=== PATIENT | male | born 1980 | race Caucasian/White ===

== ENCOUNTER 2025-04-27 00:30 | Emergency (ER) | payer MEDICAID ==
[~2025-04-27] VITALS: Ht 172.7 cm; Wt 61.8 kg
[2025-04-27 00:50] VITALS: BP 143/85; PULSE 53; RESP 16; TEMP 97.6; O2SAT 97
[2025-04-27 00:59] LABS: Basophils # (auto) 0.1 10 ^3/uL (0-0.2); Basophils % (auto) 0.5 % (0.0-2.0); Eosinophils # (auto) 0 10 ^3/uL (0-0.8); Eosinophils % (auto) 0.1 % (0.0-7.0); Hematocrit 47.7 % (41.0-53.0); Hemoglobin 16.3 g/dL (13.5-17.5); Lymphocytes # (auto) 0.7 10 ^3/uL (0.4-5.4); Lymphocytes % (auto) 4.6 % (10.0-50.0); Mean Corpuscular Hemoglobin 31.8 pg (28.0-32.0); Mean Corpuscular Hgb Conc. 34.2 g/dL (32.0-36.0); Mean Corpuscular Volume 93.1 fL (80.0-100.0); Monocytes # (auto) 0.7 10 ^3/uL (0-1.3); Monocytes % (auto) 4.3 % (0.0-12.0); Neutrophils # (auto) 13.9 10 ^3/uL (1.6-8.6); Neutrophils % (auto) 90.5 % (37.0-80.0); Platelet Count (auto) 198 10^3/uL (140-450); Red Blood Cells 5.12 10^6/uL (4.5-5.90); Red Cell Distribution Width 14.5 % (11.8-14.3); White Blood Cell 15.4 10^3/uL (4.4-10.8)
[2025-04-27 01:04] LABS: Potassium 3.6 mmol/L (3.5-5.1); Sodium 144 mmol/L (136-145)
[2025-04-27 01:05] LABS: Anion Gap 10 (5-15); Calcium 9.5 mg/dL (8.7-10.4); Carbon Dioxide 24 mmol/L (20-31)
[2025-04-27 01:09] LABS: Chloride 110 mmol/L (98-107)
[2025-04-27 01:10] LABS: BUN/Creatinine Ratio 11.2 (10.0-20.0); Blood Urea Nitrogen 12 mg/dL (9-23)
[2025-04-27 01:11] LABS: Lipase 29 U/L (12-53)
[2025-04-27 01:14] LABS: Glucose 153 mg/dL (74-106)
[2025-04-27] MEDS ORDERED: METO-281 PO (02:57)
[2025-04-27] MEDS ORDERED: DICY10CA PO (02:57)
[2025-04-27] MEDS ORDERED: METR-344 PO (02:57)
[2025-04-27] MEDS ORDERED: ZOFR4T PO (02:57)
--- NOTE | 2025-04-27 02:58 | ED.PDOC ---
GI ASSESSMENT HPI Comments Patient is a slender 44-year-old male who arrives the ED today for evaluation of diffuse abdominal pain that began earlier today and has continued. Patient states that the event occurred after he drank some juice. Patient states that intermittent nausea and vomiting as well as not passing any stools since earlier today. Patient denies any fever. Vital signs were reasonably stable on arrival. Chief Complaint: Abdominal Pain Time Seen by MD: 00:32 Reviewed Notes: Nurses Notes Allergies: Coded Allergies: No Known Drug Allergy (Verified Allergy, Unknown, 04/27/25) Information Source: Patient, Friend Mode of Arrival: Ambulatory Timing: Hours Duration: Since onset Prehospital treatment: None Quality: Aching, Cramping Vomitus: Bilious, Food Particles, Soft, Watery Severity: Moderate Recent: Possible spoiled food Recent Hx of: None Pain Location: Diffuse, Epigastric, Periumbilical Associated sign and symptoms: Nausea, Vomiting Past Medical History PAST MEDICAL HISTORY: Denies Surgical History: Denies all surgeries Family History Family History: Reviewed,noncontributory to illness, No family hx of Cancer, No family hx of DM, No family hx of Heart lashae, No family hx of HTN, No family hx ofKidney lashae, No family hx of Liver lashae, No family hx of Lung lashae, No family hx of Stroke Social History Smoker: Non-Smoker Alcohol: Denies ETOH Use Drugs: Denies Drug Use Lives In: Home Constitutional: denies: chills, diaphoresis, fatigue, fever, malaise, sweats, weakness, others EENTM: denies: blurred vision, double vision, ear bleeding, ear discharge, ear drainage, ear pain, ear ringing, eye pain, eye redness, hearing loss, mouth pain, mouth swelling, nasal discharge, nose bleeding, nose congestion, nose pain, photophobia, tearing, throat pain, throat swelling, voice changes, others Respiratory: denies: cough, hemoptysis, orthopnea, SOB at rest, shortness of breath, SOB with excertion, stridor, wheezing, others Cardiovascular: denies: chest pain, dizzy spells, diaphoresis, Dyspnea on exertion, edema, irregular heart beat, left arm pain, lightheadedness, palpitations, PND, syncope, others Gastrointestinal: reports: abdominal pain, nausea, vomiting; denies: abdomen distended, blood streaked bowels, constipated, diarrhea, dysphagia, difficulty swallowing, hematemesis, melena, poor appetite, poor fluid intake, rectal bleeding, rectal pain, others Genitourinary: denies: burning, dysuria, flank pain, frequency, hematuria, incontinence, penile discharge, penile sore, pain, testicle pain, testicle swelling, urgency, others Neurological: denies: dizziness, fainting, headache, left sided numbness, left sided weakness, numbness, paresthesia, pre-existing deficit, right sided numbness, right sided weakness, seizure, speech problems, tingling, tremors, weakness, others Musculoskeletal: denies: back pain, gout, joint pain, joint swelling, muscle pain, muscle stiffness, neck pain, others Integumetry: denies: bruises, change in color, change in hair/nails, dryness, laceration, lesions, lumps, rash, wounds, others Allergic/Immunocompromised: denies: Difficulty Healing, Frequent Infections, Hives, Itching, others Hematologic/Lymphatic: denies: anemia, blood clots, easy bleeding, easy bruising, swollen glands, others Endocrine: denies: excessive hunger, excessive sweating, excessive thirst, excessive urination, flushing, intolerance to cold, intolerance to heat, unexplained weight gain, unexplained weight loss, others Psychiatric: denies: anxiety, bipolar disorder, depression, hopeless, panic dis order, schizophrenia, sleepless, suicidal, others Physical Exam General Appearance: Moderate Distress (Moderate distress due to abdominal pain concerns. Patient looks [id number] toxic.), Normal HEENT: Normal ENT Inspection, Pharynx Normal, TMs Normal Neck: Full Range of Motion, Non-Tender, Normal, Normal Inspection Respiratory: Chest Non-Tender, Lungs Clear, No Accessory Muscle Use, No Respiratory Distress, Normal Breath Sounds Cardiovascular: No Edema, No JVD, No Murmur, No Gallop, Normal Peripheral Pul ses, Regular Rate/Rhythm Breast Exam: Deferred Gastrointestinal: Other (Diffuse abdominal tenderness to palpation throughout the right upper and lower quadrant. No specific right lower quadrant or rebound noted. Abdomen was reasonably soft. No pulsatile masses.) Genitalia: Deferred Pelvic: Deferred Rectal: Deferred Extremities: No calf tenderness, Normal capillary refill, Normal inspection, Normal range of motion, Non-tender, No pedal edema Neurologic: Alert, No Motor Deficits, Normal Affect, Normal Mood, No Sensory Deficits Cerebellar Function: Normal Reflexes: Normal Skin: Dry, Normal Color, Warm Lymphatic: No Adenopathy Was a procedure done? Was a procedure done?: No GI differential Dx Differential Diagnosis: Gastritis/PUD, Gastroenteritis, Food Poisoning, Other (Sepsis, pancreatitis, constipation) X-Ray, Labs, Meds, VS Vital Signs Date Time Temp Pulse Resp B/P (MAP) Pulse Ox O2 Delivery O2 Flow Rate FiO2 04/27/25 00:50 97.6 53 16 143/85 (104) 97 97.6 Lab Test 04/27/25 00:46 Range/Units White Blood Count 15.4 H 4.4-10.8 10^3/uL Red Blood Count 5.12 4.5-5.90 10^6/uL Hemoglobin 16.3 13.5-17.5 g/dL Hematocrit 47.7 41.0-53.0 % Mean Corpuscular Volume 93.1 80.0-100.0 fL Mean Corpuscular Hemoglobin 31.8 28.0-32.0 pg Mean Corpuscular Hemoglobin Concent 34.2 32.0-36.0 g/dL Red Cell Distribution Width 14.5 H 11.8-14.3 % Platelet Count 198 140-450 10^3/uL Mean Platelet Volume 7.8 6.9-10.8 fL Neutrophils (%) (Auto) 90.5 H 37.0-80.0 % Lymphocytes (%) (Auto) 4.6 L 10.0-50.0 % Monocytes (%) (Auto) 4.3 0.0-12.0 % Eosinophils (%) (Auto) 0.1 0.0-7.0 % Basophils (%) (Auto) 0.5 0.0-2.0 % Neutrophils # (Auto) 13.9 H 1.6-8.6 10 ^3/uL Lymphocytes # (Auto) 0.7 0.4-5.4 10 ^3/uL Monocytes # (Auto) 0.7 0-1.3 10 ^3/uL Eosinophils # (Auto) 0 0-0.8 10 ^3/uL Basophils # (Auto) 0.1 0-0.2 10 ^3/uL Nucleated Red Blood Cells 0.0 % Sodium Level 144 136-145 mmol/L Potassium Level 3.6 3.5-5.1 mmol/L Chloride Level 110 H 98-107 mmol/L Carbon Dioxide Level 24 20-31 mmol/L Anion Gap 10 5-15 Blood Urea Nitrogen 12 9-23 mg/dL Creatinine 1.07 0.700-1.30 mg/dL Glomerular Filtration Rate Calc 89 >90 mL/min BUN/Creatinine Ratio 11.2 10.0-20.0 Serum Glucose 153 H 74-106 mg/dL Calcium Level 9.5 8.7-10.4 mg/dL Lipase 29 12-53 U/L X-Ray, Labs, Meds, VS Comment All studies performed the ED were evaluated by me personally. Patient did not provide urine while at the facility. Laboratories studies were relatively unremarkable other than a mildly elevated WBC. Imaging studies of the abdomen ruled out any SBO or significant retained stool burden. Patient responded reasonably well to medication dispensed. Advised patient utilize medication as directed as well as additional medication as needed. Patient should practice a rice diet as well. Patient was given a dose of Flagyl prior to discharge. Patient has been advised that if his pain radiates to his right lower quadrant and become severe, return to ED for CT evaluation. Time of 1ST Reevaluation: :54 Reevaluation 1ST: Improved Consultation: PCP Patient Education/Counseling: Diagnosis, Treatment Family Education/Counseling: Diagnosis, Treatment Departure 1 Departure Time of Disposition: 02:54 Impression: Primary Impression: Gastroenteritis Disposition: HOME / SELF CARE / HOMELESS Condition: Stable Additional Instructions: Advised patient utilize antibiotics as directed and additional medication as needed. If symptoms worsen and pain migraines towards the right lower quadrant and becomes excruciating, return to ED for CT evaluation of abdomen and pelvis. e-Prescriptions Metoclopramide Hcl (Reglan) 10 Mg Tab 10 MG PO Q8HP PRN, #10 TAB Prov: JEMIMA CORDON PAC 04/27/25 Ondansetron Odt 4MG Tab (ZOFRAN PO) 4 Mg Tb 4 MG PO Q6HP PRN, #20 TAB ODT TAB-DISSOLVE IN MOUTH, THEN SWALLOW Prov: JEMIMA CORDON PAC 04/27/25 Dicyclomine Hcl (BENTYL CAPSULE) 10 Mg Cp 1 CAP PO Q6HPRN, #20 CAP 0 Refills Prov: JEMIMA CORDON PAC 04/27/25 Metronidazole (Flagyl) 500 Mg Tab 1 TAB PO BID for 7 Days, #14 TAB Prov: JEMIMA CORDON PAC 04/27/25 Discharged With: Self, Friend Critical Care Note Critical Care Time?: No Stability Stability form required: No Heart Score Heart Score: Heart Score Response (Comments) Value History N/A 0 EKG N/A 0 Age N/A 0 Risk Factors N/A 0 Troponin N/A 0 Total 0 JEMIMA CORDON PAC Apr 27, 2025 02:58
--- NOTE | 2025-04-27 03:09 | DVH ---
Indication: Constipation Technique: Single frontal view of the abdomen was obtained Comparison: None IMPRESSION: Bowel-gas pattern is nonobstructed. No evidence of free intraperitoneal air. Significant colonic sto ol is not appreciated, however colonic loops appear nondistended by gas.
[2025-04-27] MEDS: metroNIDAZOLE 500 MG TAB PO ONE (03:24)
[2025-04-27] MEDS: DICYCLOMINE HCL (10MG/ML) 2 ML AMPULE IM ONE (03:24)
[2025-04-27] MEDS: ONDANSETRON ODT 4 MG TAB PO ONE (03:24)
== END 2025-04-27 04:19 | disposition home or self-care (01) ==
LOC: ER 00:30
DX: K52.9 Noninfective gastroenteritis and colitis, unspecified (principal)
CPT/HCPCS: 36415; 74018; 80048; 83690; 85025; 99284; J0500; Q0162